=== PATIENT | female | born 1990 | race Caucasian/White ===

== ENCOUNTER 2022-08-29 13:29 | Emergency (ER) | payer MEDICAID ==
[~2022-08-29] VITALS: Ht 165.1 cm; Wt 54.9 kg
[2022-08-29 13:51] VITALS: BP_SYST 121
--- NOTE | 2022-08-29 14:00 | NUR ---
Triaged patient. Patient presented to ED with c/o severe anxiety attack. Also c/o abdominal pain with burning to abdomen and chest pain. VSS. Patient with father. Patient stated she came from another hospital because they did not do anything. She stated she only received benadryl from them. Placed in ED bed 5.
--- NOTE | 2022-08-29 14:15 | NUR ---
Report given to [facility].
--- NOTE | 2022-08-29 14:16 | NUR ---
Pt bib father from home. CC panic attack pt c/o abdominal pain. Pt states able to have regular bm and no dysuria, pt is aaox3, denies NVD, pt skin intact. Pt crying wailing, I am going to , I need medicine. VSS, NAD, pt states recurrent panic episodes.
[2022-08-29] MEDS ORDERED: DIPHENHYDRAMINE INJ 50 MG/ML VIAL IVP ONE (14:45)
--- NOTE | 2022-08-29 14:45 | NUR ---
PT VERY DEMANDING AND YELLING NURSE OFTEN. EXPLAINED TO PT THAT SHE NEEDS TO ACT APPROPRIATE IN ER. PT MEDICATED ORDERED. PT WANTED ME TO PUSH ATIVAN IN LOWEST PORT AND TO PUSH IT FAST, UNDILUTED. EXPLAINED TO PT THAT IS NOT HOW WE DO IT AND I WILL BE DOING IT SAFELY. PT WANTING MORE AND MORE MEDICATION. CLIVE HELD DUE TO SHE HAD JUST RECEIVED IT AT ANOTHER HOSPITAL. DR NALINI DIOP
[2022-08-29] MEDS: ONDANSETRON HCL 4 MG/2 ML VIAL IVP ONE (14:57)
[2022-08-29] MEDS: KETOROLAC TROMETHAMINE 15 MG VIAL IVP ONE (14:57)
[2022-08-29] MEDS: LORazepam 2 MG/ML VIAL IVP ONE (14:58)
[2022-08-29] MEDS: NACL 0.9% 1,000 ML IV ONE (14:59)
--- NOTE | 2022-08-29 15:00 | NUR ---
ER at bedside examining patient.
--- NOTE | 2022-08-29 15:11 | NUR ---
PT REFUSING TO HAVE ANY LABS DRAWN AT THIS TIME, STATING JUST TO LEAVE HER ALONE.
--- NOTE | 2022-08-29 15:15 | NUR ---
DR GAYLE NOTIFIED ABOUT PTS REFUSAL. DR GYALE SPEAKING WITH PT.
--- NOTE | 2022-08-29 15:20 | NUR ---
Patient given verbal instructions and verbalizes understanding. ER MD discussed with patient the results and treatment provided. Patient in stable condition. ID arm band removed. IV catheter removed intact and dressing applied, no active bleeding. Opportunity for questions provided and answered.
[2022-08-29 16:02] VITALS: BP_SYST 144
== END 2022-08-29 15:20 | disposition left against medical advice (07) ==
LOC: SED 13:29
DX: F41.0 Panic disorder [episodic paroxysmal anxiety] (principal); R11.2 Nausea with vomiting, unspecified; R10.84 Generalized abdominal pain; Z79.899 Other long term (current) drug therapy
CPT/HCPCS: 99284; 96374; 96375; 96361; J1200; J1885; J2060; J2405; J7030; 80307